=== PATIENT | female | born 1945 | race Caucasian/White ===

== ENCOUNTER 2017-04-23 10:02 | Emergency (ER) | payer OTHER ==
[2017-04-23 10:18] VITALS: RESP 18; TEMP 98.4; O2SAT 94
--- NOTE | 2017-04-23 10:32 | EDPHY ---
H & P Stated Complaint: hit head on door this am. on blood thinner Time Seen by Provider: 04/23/17 10:28 HPI/ROS: CHIEF COMPLAINT: Mechanical fall, head injury, on anticoagulation HISTORY OF PRESENT ILLNESS: The patient presents to the ED with complaints of a mild headache following a mechanical fall last night. The patient is anticoagulated for atrial fibrillation with Eliquis. Since the fall, the patient has had a mild right-sided headache. She denies any neck pain, back pain, chest pain or extremity trauma. The patient has no complaints of photophobia, weakness or numbness. The patient denies additional injury or any acute medical complaints. REVIEW OF SYSTEMS: A comprehensive 10 point review of systems is otherwise negative aside from elements mentioned in the history of present illness. Source: Patient Exam Limitations: No limitations - Personal History Current Tetanus/Diphtheria Vaccine: Unsure - Medical/Surgical History Hx Asthma: No Hx Chronic Respiratory Disease: No Hx Diabetes: Yes Hx Cardiac Disease: Yes Hx Renal Disease: No Hx Cirrhosis: No Hx Alcoholism: No Hx HIV/AIDS: No Hx Splenectomy or Spleen Trauma: No Other PMH: htn, afib. OHS - Social History Smoking Status: Former smoker - Physical Exam Exam: General Appearance: Alert, no distress Head: Tenderness to palpation right parietal scalp, small amount of soft tissue swelling, no significant hematoma appreciated Eyes: Pupils equal, round, reactive ENT, Mouth: No hemotympanum, no oral trauma Neck: Nontender, trachea midline Respiratory: No chest wall tender, subcutaneous air, lungs clear bilaterally Cardiovascular: Regular rate and rhythm Abdomen: Abdomen is soft and nontender, pelvis stable Skin: No lacerations, No abrasion Back: No midline T/L/S pain Extremities: Nontender, full range of motion Neurological: A&Ox3, normal motor function, normal sensory exam Constitutional: Initial Vital Signs Temperature (C) 36.9 C 04/23/17 10:15 Heart Rate 73 04/23/17 10:15 Respiratory Rate 18 04/23/17 10:15 Blood Pressure 200/109 H 04/23/17 10:15 O2 Sat (%) 94 04/23/17 10:15 O2 Delivery Mode Room Air Allergies/Adverse Reactions: meperidine [From Demerol] Allergy (Verified 04/23/17 10:18) Home Medications: Medication Instructions Recorded Cartia Xt 04/23/17 Eliquis 04/23/17 Losartan-Hctz 100-25 mg Tab 04/23/17 Metoprolol Tartrate 12.5 BID 04/23/17 Medical Decision Making - Diagnostics Imaging Results: Imaging Impressions Head CT 04/23/17 10:30 Impression: 1. Mild age-related atrophy. 2. No hemorrhage, mass effect, or definite acute peripheral infarct. 3. Mild to moderate microvascular ischemic disease. 4. Nonspecific fluid within a few right mastoid air cells. If symptoms worsen, additional imaging may be necessary. Findings discussed with Jose Anderson M.D. at 10:55 hour, 04/23/2017. ED Course/Re-evaluation: The patient presents to the emergency department with headache following a mechanical fall. She is anticoagulated with Eliquis. Given her anticoagulation and trauma she was taken for a noncontrast head CT scan to evaluate for intracranial hemorrhage or skull fracture. Fortunately, her head CT scan demonstrates no evidence of intracranial hemorrhage or skull fracture. She is noted to be neurologically intact without evidence of additional traumatic injury. I re-evaluated the patient at 11:30 a.m.. She will be discharged home with customary aftercare instructions and return precautions. Differential Diagnosis: Differential diagnosis considered includes intracranial hemorrhage, skull fracture, concussion Departure - Departure Disposition: Home, Routine, Self-Care Clinical Impression: Minor head injury Condition: Good Instructions: Head Injury (ED) Additional Instructions: 1. Your CT scan today demonstrates no evidence of bleeding or fracture. 2. Please return to the emergency department immediately for any progressive worsening headache, vomiting or other concerns. Referrals: MIKE MOON [Other] - As per Instructions
[2017-04-23 11:51] VITALS: BP 178/94; PULSE 72
== END 2017-04-23 11:52 | disposition home or self-care (01) ==
LOC: EDSEX 10:02
DX: S09.90XA Unspecified injury of head, initial encounter (principal); W18.09XA Striking against other object with subsequent fall, initial encounter; E11.9 Type 2 diabetes mellitus without complications; I10 Essential (primary) hypertension; Z87.891 Personal history of nicotine dependence; Z79.01 Long term (current) use of anticoagulants